=== PATIENT | female | born 1955 | race Caucasian/White ===

== ENCOUNTER → 2016-09-10 | Outpatient (CLI) | payer BC | LOC: RAD 13:52 | DX: M25.552 Pain in left hip (principal) | CPT/HCPCS: 73502 ==

== ENCOUNTER → 2016-11-27 | Outpatient (CLI) | payer BC | LOC: KOH-I 14:16 | DX: J20.9 Acute bronchitis, unspecified (principal); R06.02 Shortness of breath | CPT/HCPCS: 71020 ==

== ENCOUNTER → 2020-08-17 | Outpatient (CLI) | payer OTHER ==
[~2020-08-17] MED LIST: ARNUITY ELLIP200 MCG INH; ASPIRIN EC81 MG PO; COZAAR100 MG PO; CRESTOR20 MG PO; CYCLOBENZAPRINE5 MG PO; FLONASE 0.05% N16 GM INH; GLIPIZIDE5 MG PO; LANTUS100 UNIT/1 SQ; MACROBID 100 M100 MG PO; METFORMIN HCL500 MG PO; METOPROLOL SUCC50 MG PO; NORVASC5 MG PO; OMEPRAZOLE10 MG PO; PROAIR HFA8.5 GM INH; SPIRONOLACTONE25 MG PO; ULTRAM50 MG PO; VITAMIN D3 PO; VOLTAREN TD; Voltaren Gel 1 % TOP; XYZAL5 MG PO
[2020-08-17 13:01] LABS: BUN/CREATININE RATIO 25 (0-10)
== END ==
LOC: LAB 12:09
PROVIDERS: Internal Medicine Nephrology
DX: E87.6 Hypokalemia (principal); R31.9 Hematuria, unspecified; R80.9 Proteinuria, unspecified
CPT/HCPCS: 36415; 80053; 82570; 83735; 84156

== ENCOUNTER → 2020-09-08 | Outpatient (CLI) | payer MEDICARE, OTHER | LOC: HEART 5 11:13 | DX: J45.909 Unspecified asthma, uncomplicated (principal); F17.210 Nicotine dependence, cigarettes, uncomplicated | CPT/HCPCS: 94010 ==

== ENCOUNTER → 2020-09-29 | Day surgery (SDC) | payer MEDICARE, OTHER | END | disposition home or self-care (01) | LOC: OR 09-28 12:00 | DX: D12.5 Benign neoplasm of sigmoid colon (principal); K62.1 Rectal polyp; K31.7 Polyp of stomach and duodenum; K29.80 Duodenitis without bleeding; K64.1 Second degree hemorrhoids; E78.5 Hyperlipidemia, unspecified; E11.9 Type 2 diabetes mellitus without complications; M19.90 Unspecified osteoarthritis, unspecified site; I10 Essential (primary) hypertension; K21.9 Gastro-esophageal reflux disease without esophagitis; F17.210 Nicotine dependence, cigarettes, uncomplicated; Z86.010 Personal history of colon polyps; Z88.0 Allergy status to penicillin; Z88.1 Allergy status to other antibiotic agents; Z79.82 Long term (current) use of aspirin; Z79.4 Long term (current) use of insulin; Z79.899 Other long term (current) drug therapy | CPT/HCPCS: 82962; J2001; J2704; J7040 ==

== ENCOUNTER → 2020-11-21 | Outpatient (CLI) | payer MEDICARE, OTHER | LOC: KOH-I 09:34 | DX: F17.210 Nicotine dependence, cigarettes, uncomplicated (principal) | CPT/HCPCS: 71271 ==

== ENCOUNTER → 2020-12-21 | Outpatient (CLI) | payer MEDICARE, OTHER ==
[2020-12-21 13:43] LABS: BUN/CREATININE RATIO 18 (0-10)
== END ==
LOC: LAB 12:12
PROVIDERS: Internal Medicine Nephrology
DX: R31.9 Hematuria, unspecified (principal); R80.9 Proteinuria, unspecified; E87.6 Hypokalemia
CPT/HCPCS: 36415; 80053; 81001; 82570; 83735; 84156

== ENCOUNTER → 2021-03-24 | Outpatient (CLI) | payer MEDICARE, OTHER ==
[2021-03-24 12:51] LABS: BUN/CREATININE RATIO 18 (0-10); URINE TOTAL PROTEIN 7 mg/dl
== END ==
LOC: LAB 12:02
PROVIDERS: Internal Medicine Nephrology
DX: E87.6 Hypokalemia (principal); R80.9 Proteinuria, unspecified
CPT/HCPCS: 36415; 80053; 83735; 84156

== ENCOUNTER → 2021-04-17 | Outpatient (CLI) | payer MEDICARE, OTHER | LOC: RAD 12:56 | DX: R05.9 Cough, unspecified (principal) | CPT/HCPCS: 71046 ==

== ENCOUNTER → 2021-05-30 | Emergency (ER) | payer MEDICARE, OTHER ==
[~2021-05-30] MED LIST changes: +LODINE CAP 300300 MG PO; +ZOFRAN ODT 4 MG4 MG PO
== END | disposition home or self-care (01) ==
LOC: ER1 16:55
DX: S40.011A Contusion of right shoulder, initial encounter (principal); S50.01XA Contusion of right elbow, initial encounter; S49.91XA Unspecified injury of right shoulder and upper arm, initial encounter; S34.139A Unspecified injury to sacral spinal cord, initial encounter; Z88.1 Allergy status to other antibiotic agents; E11.9 Type 2 diabetes mellitus without complications; Z79.84 Long term (current) use of oral hypoglycemic drugs; I10 Essential (primary) hypertension; W19.XXXA Unspecified fall, initial encounter
CPT/HCPCS: 71045; 72128; 72131; 73030; 73080; 96372; 99283; J1885

== ENCOUNTER → 2021-08-04 | Outpatient (CLI) | payer MEDICARE | LOC: KOH-I 09:58 | DX: M24.411 Recurrent dislocation, right shoulder (principal); M75.111 Incomplete rotator cuff tear or rupture of right shoulder, not specified as traumatic; M19.011 Primary osteoarthritis, right shoulder; S43.431A Superior glenoid labrum lesion of right shoulder, initial encounter; M75.21 Bicipital tendinitis, right shoulder | CPT/HCPCS: 73221 ==

== ENCOUNTER → 2021-09-27 | Outpatient (CLI) | payer MEDICARE ==
[2021-09-27 13:37] LABS: BUN/CREATININE RATIO 16 (0-10)
== END ==
LOC: LAB 12:27
PROVIDERS: Internal Medicine Nephrology
DX: R80.9 Proteinuria, unspecified (principal); E87.6 Hypokalemia
CPT/HCPCS: 36415; 80053; 81001; 82570; 83735; 84156

== ENCOUNTER → 2021-12-20 | Outpatient (CLI) | payer MEDICARE ==
[~2021-12-20] MED LIST changes: +PAXLOVID 150-11 EACH PO
== END ==
LOC: KOH-I 09:40
DX: R10.11 Right upper quadrant pain (principal); F17.210 Nicotine dependence, cigarettes, uncomplicated; R91.8 Other nonspecific abnormal finding of lung field; K76.0 Fatty (change of) liver, not elsewhere classified
CPT/HCPCS: 71271; 76700

== ENCOUNTER 2021-12-22 20:14 | Emergency (ER) | payer MEDICARE ==
[~2021-12-22 20:14] MED LIST changes: -PAXLOVID 150-11 EACH PO
[2021-12-22 21:33] LABS: HEMOGLOBIN 13.2 gm/dl (12.3-15.3); RED BLOOD COUNT 4.79 M/UL (4.00-5.10); WHITE BLOOD COUNT 8.4 K/UL (4.5-11.0)
[2021-12-22] MEDS ORDERED: PAXLOVID 150-11 EACH PO (22:52)
== END 2021-12-22 22:45 | disposition home or self-care (01) ==
LOC: ER1 20:14
PROVIDERS: Nurse Practitioner
DX: U07.1 COVID-19 (principal); I10 Essential (primary) hypertension; F17.210 Nicotine dependence, cigarettes, uncomplicated; Z88.0 Allergy status to penicillin; Z88.1 Allergy status to other antibiotic agents
CPT/HCPCS: 0240U; 71045; 80053; 81001; 85025; 85652; 86140; 87086; 94664; 99284; J2405

== ENCOUNTER → 2022-01-31 | Outpatient (CLI) | payer MEDICARE, OTHER ==
[~2022-01-31] MED LIST changes: +PAXLOVID 150-11 EACH PO
[2022-01-31 13:22] LABS: BUN/CREATININE RATIO 24 (0-10)
== END ==
LOC: LAB 11:37
PROVIDERS: Internal Medicine Nephrology
DX: N39.0 Urinary tract infection, site not specified (principal); R31.9 Hematuria, unspecified; R80.9 Proteinuria, unspecified; E87.6 Hypokalemia
CPT/HCPCS: 36415; 80053; 82570; 83735; 84156; 87086

== ENCOUNTER → 2022-02-06 | Outpatient (CLI) | payer MEDICARE, OTHER | LOC: HEART 5 09:30 | DX: R94.31 Abnormal electrocardiogram [ECG] [EKG] (principal); R06.02 Shortness of breath | CPT/HCPCS: 93306 ==